=== PATIENT | female | born 1985 | race African-American/Black ===

== ENCOUNTER 2020-02-08 08:34 | Emergency (ER) | payer OTHER, SELFPAY ==
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
[2020-02-08 08:46] VITALS: BP 147/87; PULSE 82; RESP 18; TEMP 37.2; O2SAT 100
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
== END 2020-02-08 10:12 | disposition home or self-care (01) ==
PROVIDERS: Emergency Provider Emergency Medicine; PCP Emergency Medicine
DX: S16.1XXA Strain of muscle, fascia and tendon at neck level, initial encounter (principal); S29.012A Strain of muscle and tendon of back wall of thorax, initial encounter; S63.502A Unspecified sprain of left wrist, initial encounter; V49.40XA Driver injured in collision with unspecified motor vehicles in traffic accident, initial encounter
CPT/HCPCS: 73110; 99283

== ENCOUNTER → 2023-01-31 12:57 | Outpatient (CLI) | payer OTHER, SELFPAY ==
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
== END ==
PROVIDERS: Visit Provider Podiatrist Foot & Ankle Surgery
DX: M66.872 Spontaneous rupture of other tendons, left ankle and foot (principal)
CPT/HCPCS: 73721